=== PATIENT | male | born 1980 | race American Indian/Alaskan Native ===

== ENCOUNTER 2018-06-12 07:09 | Emergency (ER) | payer SELFPAY ==
[2018-06-12 07:19] VITALS: BP 143/102
--- NOTE | 2018-06-12 08:19 | Emergency Department Report ---
Minor Respiratory - HPI Chief Complaint: Upper Respiratory Infection Stated Complaint: COLD SX HEART PAIN COUGH Time Seen by Provider: 06/12/18 08:07 Duration: 3 Days Pain Location: Chest Severity: moderate Minor Respiratory: Yes Rhinorrhea, Yes Sore Throat, Yes Able to Tolerate Fluids, Yes Cough, Yes Fever, No Ear Pain, No Sick Contacts, No Hemoptysis, No Chest Pain, No Shortness of Breath Other History: Patient is a 37-year-old gentleman who is complaining of cough with yellow sputum body aches and sore throat. Patient states his sore in his chest when he coughs. ED Review of Systems ROS: Stated complaint: COLD SX HEART PAIN COUGH Other details as noted in HPI Comment: All other systems reviewed and negative ED Past Medical Hx - Past Medical History Previous Medical History?: No - Surgical History Past Surgical History?: No - Social History Smoking Status: Never Smoker Substance Use Type: None - Medications Home Medications: Home Medications Medication Instructions Recorded Confirmed Last Taken Type ALBUTEROL Inhaler (OR & NICU) 2 puff IH QID PRN #1 inhalation 06/12/18 Unknown Rx [ProAir HFA Inhaler] Benzonatate [Tessalon Perles] 100 mg PO Q8HR #10 capsule 06/12/18 Unknown Rx HYDROcodone/APAP 5-325 [Blanca 1 each PO Q6HR PRN #12 tablet 06/12/18 Unknown Rx 5/325] Ibuprofen [Motrin] 800 mg PO Q8HR PRN #20 tablet 06/12/18 Unknown Rx predniSONE [Deltasone] 20 mg PO QDAY #5 tab 06/12/18 Unknown Rx Minor Respiratory Exam - Exam General: Vital signs noted. No distress. Alert and acting appropriately. HEENT: Yes Moist Mucous Membranes, No Pharyngeal Erythema, No Pharyngeal Exudates, No Rhinorrhea, No Conjuctival Injection, No Frontal Tenderness, No Maxillary Tenderness Ear: Neither TM Bulge, Neither TM Erythema, Neither EAC Pain, Neither EAC Discharge Neck: Yes Supple, No Adenopathy Lungs: Yes Good Air Exchange, Yes Cough (lungs clear to auscultation), No Wheezes, No Ronchi, No Stridor, No Labored Respirations, No Retractions, No Use of Accessory Muscles, No Other Abnormal Lung Sounds Heart: Yes Regular, No Murmur Abdomen: Yes Normal Bowel Sounds, No Tenderness, No Peritoneal Signs Skin: No Rash, No Edema Neurologic: Alert and oriented, no deficits. Musculoskeletal: Unremarkable. ED Course Vital Signs 06/12/18 07:17 Temperature 99.2 F Pulse Rate 83 Respiratory 18 Rate Blood Pressure 143/102 O2 Sat by Pulse 98 Oximetry ED Medical Decision Making - Medical Decision Making Patient with flulike symptoms. Patient be sent home with meds for symptomatic relief and will be discharged. Critical care attestation.: If time is entered above; I have spent that time in minutes in the direct care of this critically ill patient, excluding procedure time. ED Disposition Clinical Impression: Influenza Disposition: DC-01 TO HOME OR SELFCARE Is pt being admited?: No Does the pt Need Aspirin: No Condition: Stable Instructions: Influenza (ED) Forms: Work/School Release Form(ED) Time of Disposition: 08:19
[2018-06-12] MEDS ORDERED: TORADOL IM ONE (08:20)
== END 2018-06-12 08:28 | disposition home or self-care (01) ==
LOC: ED 07:09
DX: J11.1 Influenza due to unidentified influenza virus with other respiratory manifestations (principal)
CPT/HCPCS: 96372; 99282; J1885